=== PATIENT | female | born 1990 | race Two or more races ===

== ENCOUNTER 2017-12-23 13:45 | Outpatient (CLI) ==
[2017-12-24] MEDS ORDERED: ANESTHESIA TRAY IN PYXIS 1 EA TRAY MC ONE (06:07)
[2017-12-24] MEDS ORDERED: PREG100C PO (10:09)
[2017-12-24] MEDS ORDERED: ASPI-1169 PO (10:09)
[2017-12-24] MEDS ORDERED: CALC-903 PO (10:09)
[2017-12-24] MEDS ORDERED: CHOL100044 PO (10:09)
== END 2017-12-23 23:59 | disposition home or self-care (01) ==
LOC: WOU 13:45
PROVIDERS: ATTEND Surgery
DX: Z01.818 Encounter for other preprocedural examination (principal); Z42.1 Encounter for breast reconstruction following mastectomy; Z91.012 Allergy to eggs
CPT/HCPCS: 99205; Z7610; G0463